=== PATIENT | female | born 1970 | race African-American/Black ===

== ENCOUNTER 2017-07-28 08:52 | Emergency (ER) | payer MEDICARE, MEDICAID ==
[~2017-07-28] VITALS: Ht 167.6 cm; Wt 60.0 kg
[~2017-07-28 08:52] MED LIST: ALBUTEROL
[2017-07-28 08:54] VITALS: BP 150/63
[2017-07-28] MEDS ORDERED: KETOROLAC 60MG/2ML VIAL IM ONE (09:15)
== END 2017-07-28 10:10 | disposition home or self-care (01) ==
LOC: ER 09:23
DX: S29.012A Strain of muscle and tendon of back wall of thorax, initial encounter (principal); S20.211A Contusion of right front wall of thorax, initial encounter; S20.229A Contusion of unspecified back wall of thorax, initial encounter; J45.909 Unspecified asthma, uncomplicated; W19.XXXA Unspecified fall, initial encounter; Y93.89 Activity, other specified; Y92.89 Other specified places as the place of occurrence of the external cause; Y99.8 Other external cause status
CPT/HCPCS: 71045; 96372; 99283; J1885